=== PATIENT | female | born 1990 ===

== ENCOUNTER → 2024-05-26 | Outpatient (CLI) | payer MEDICAID ==
[~2024-05-26] VITALS: Ht 162.6 cm; Wt 74.4 kg
== END | disposition home or self-care (01) ==
LOC: Rad HDHVI 13:27
PROVIDERS: ATTEND Internal Medicine Cardiovascular Disease
DX: Z01.810 Encounter for preprocedural cardiovascular examination (principal); Z13.6 Encounter for screening for cardiovascular disorders; R00.2 Palpitations; R94.39 Abnormal result of other cardiovascular function study; R07.89 Other chest pain
CPT/HCPCS: 78452; 93017; 96374; A9500

== ENCOUNTER → 2024-05-28 | Outpatient (CLI) | payer MEDICAID | END | disposition home or self-care (01) | LOC: Rad HDHVI 12:50 | PROVIDERS: ATTEND Internal Medicine Cardiovascular Disease | DX: R00.2 Palpitations (principal); R07.89 Other chest pain | CPT/HCPCS: 93306 ==